=== PATIENT | female | born 1980 | race African-American/Black ===

== ENCOUNTER 2024-08-17 15:30 | Emergency (ER) | payer SELFPAY ==
--- NOTE | 2024-08-17 16:35 | RAD REPORT ---
EXAM: 1St Trimest Single 1St Fetus HISTORY: VAGINAL BLEEDING COMPARISON: None TECHNIQUE: Multiple grayscale and color Doppler images were obtained in a transabdominal pelvic ultra sound. Spectral analysis of the Doppler waveforms of the ovaries were performed. FINDINGS: UTERUS: There is an intrauterine gestational sac. This contains a pole. [place]-rump length: 5.6 cm which estimates gestational age at 12 week 1 day. A heart rate is detected at 177 bpm. No evidence of subchorionic hemorrhage. No free fluid is seen in the pelvis. RIGHT OVARY: Nonvisualized LEFT OVARY: Nonvisualized IMPRESSION: Single live intrauterine with estimated age of 12 weeks 1 day.
[2024-08-17 19:50] LABS: Absolute Eosinophils 0.1 K/uL (0-0.5); Absolute Monocytes 0.2 K/uL (0.1-1.3); Absolute Neutrophil 3.2 K/uL (1.8-8.0); Basophils % 0.6 % (0-1.3); Eosinophils % 2.5 % (0-4.4); Hematocrit 38.3 % (36.0-45.0); Hemoglobin 13.2 g/dL (12.0-15.0); Lymphocytes % 22.6 % (15.3-44.8); MCH 31.1 pg (27.0-35.0); MCHC 34.6 g/dL (32.0-36.0); MPV 6.8 fL (7.6-11.3); Monocytes % 4.7 % (3.3-12.3); Neutrophils % 69.6 % (41.7-73.7); Nucleated Red Blood Cells % 0.1 % (0-0); Platelets 282 thou/uL (152-406); RBC Red Blood Cell Count 4.25 M/uL (3.86-4.86); Red Cell Distribution Width 14.6 % (12.1-15.2)
[2024-08-17 19:51] LABS: Specific Gravity 1.016 (1.005-1.030); Sqamous Epithelial <5 /HPF (None Seen); Urine Bacteria None Seen /HPF (<20); Urine Bilirubin NEGATIVE (Negative); Urine Blood 3+ (OVER) (Negative); Urine Clarity Extremely Turbid (Clear); Urine Color Colorless (Yellow); Urine Crystals Unidentified Few /HPF (None Seen); Urine Culture Reflex Order REFLEXED; Urine Glucose NEGATIVE (Negative); Urine Ketones NEGATIVE (Negative); Urine Microscopic Reflex YN ORDER UMIC; Urine Mucus Slight /HPF (None Seen); Urine Nitrite NEGATIVE (Negative); Urine Protein NEGATIVE (Negative); Urine RBC >50 /HPF (None Seen); Urine Urobilinogen Normal (Normal); Urine WBC 20-50 /HPF (<5); Urine WBC Clump Rare /HPF (None Seen); Urine Yeast (Budding) Trace /HPF (None Seen); Urine pH 5.5 (5.0-7.0)
[2024-08-17 20:11] LABS: Anion Gap 8.6 mEq/L (5.0-15.0); Potassium 3.6 mEq/L (3.5-5.1)
--- NOTE | 2024-08-17 21:10 | ER ---
Nurse's Notes [facility] Name: Sury Gallegos Age: 44 yrs Sex: Female : 1980 Arrival Date: 08/17/2024 Time: 15:30 Bed 11 Private MD: Diagnosis: Threatened Presentation: 08/17 16:33 Chief complaint: Patient states: Vaginal bleeding onset just [employer]. Pt states that cm10 initially the bleeding was bright red now it is dark. Pt approximately 12-13 weeks . . Coronavirus screen: Client denies travel out of the [place] in the last 14 days. Ebola Screen: Patient denies travel to an Ebola-affected area in the 21 days before illness onset. Initial Sepsis Screen: Does the patient meet any 2 criteria? No. Patient's initial sepsis screen is negative. Does the patient have a suspected source of infection? No. Patient's initial sepsis screen is negative. Risk Assessment: Do you want to hurt yourself or someone else? Patient reports no desire to harm self or others. Onset of symptoms was August 17, 2024. 16:33 Method Of Arrival: Ambulatory cm10 16:33 Acuity: DAVIAN 3 cm10 Triage Assessment: 16:35 General: Appears in no apparent distress. uncomfortable, Behavior is calm, cooperative. cm10 Pain: Denies pain. Neuro: No deficits noted. Level of Consciousness is awake, alert, obeys commands, Oriented to person, place, time, situation, Appropriate for age. : Reports vaginal bleeding that is bright red, brown, light flow, spotty. Historical: - Allergies: 16:33 No Known Allergies; cm10 - Home Meds: 16:33 None [Active]; cm10 - PMHx: 16:33 None; cm10 - PSHx: 16:33 None; cm10 - Immunization history:: Adult Immunizations up to date. - Infectious Disease History:: Denies. - Social history:: Smoking status: Patient denies any tobacco usage or history of. Screenin:41 [facility] ED Fall Risk Assessment (Adult) History of falling in the last 3 months, vc1 including since admission No falls in past 3 months (0 pts) Confusion or Disorientation No (0 pts) Intoxicated or Sedated No (0 pts) Impaired Gait No (0 pts) Mobility Assist Device Used No (0 pt) Altered Elimination No (0 pt) Score/Fall Risk Level 0 - 2 = Low Risk Oriented to surroundings, Maintained a safe environment, Educated pt \T\ family on fall prevention, incl call for assistance when getting out of bed. Abuse screen: Denies threats or abuse. Nutritional screening: No deficits noted. Tuberculosis screening: No symptoms or risk factors identified. Assessment: 16:04 General: pt to ultrasound. cm10 Vital Signs: 16:33 BP 133 / 97; Pulse 79; Resp 18; Temp 98.8(O); Pulse Ox 96% on R/A; Weight 97.52 kg; cm10 Height 4 ft. 9 in. ; Pain 0/10; 16:33 Body Mass Index 46.53 (97.52 kg, 144.78 cm) cm10 16:33 Pain Scale: Adult cm10 Vitals: 21:04 Heart Tones 172 BPM. vc1 ED Course: 15:34 Patient arrived in ED. im 15:46 [facility]C [facility] kb 15:46 Misael Edward MD is Attending Physician. kb 16:05 Triage completed. cm10 16:28 1St Trimest Single 1St Fetus In Process Unspecified. EDMS 16:33 Arm band placed on right wrist. Patient placed in waiting room. cm10 19:44 Abo/rh Typing Sent. vk 19:44 Basic Metabolic Panel Sent. vk 19:44 CBC with Diff Sent. vk 19:44 Test, Urine Sent. vk 19:44 Quantitative Hcg Sent. vk 19:44 Urinalysis w/ reflexes Sent. vk 19:44 Initial lab(s) drawn, by tx, sent to lab. Urine collected: clean catch specimen, clear. vk Inserted saline lock: 20 gauge in left antecubital area, using aseptic technique. Blood collected. Flushed with 10 mL NS. 21:40 Britt Gentile, RN is Primary Nurse. vc1 21:41 No provider procedures requiring assistance completed. IV discontinued, intact, vc1 bleeding controlled, No redness/swelling at site. Pressure dressing applied. 21:42 Patient has correct armband on for positive identification. Provided Education on: vc1 pelvic rest and f/u with OB. Administered Medications: No medications were administered Medication: 21:43 VIS not applicable for this client. vc1 Outcome: 21:09 Discharge ordered by MD. kb 21:41 Discharged to home ambulatory, with friend, vc1 21:41 Condition: stable 21:41 Discharge instructions given to patient, Instructed on discharge instructions, follow up and referral plans. Demonstrated understanding of instructions, follow-up care, 21:43 Patient left the ED. vc1 Signatures: Dispatcher [employer] EDMS Natacha Velez, Britt Alcantar RN RN vc1 Darling Browning Clarissa, RN RN cm10 Talisha Anderson Corrections: (The following items were deleted from the chart) 16:06 16:04 Chief complaint: Patient states: left eye pain onset today. tearing and swelling cm10 noted cm10 16:06 16:04 Coronavirus screen: Client denies travel out of the [place] in the last 14 days. [id number] 16: 16:04 Ebola Screen: Patient denies travel to an Ebola-affected area in the 21 days cm10 before illness onset. cm10 16:06 16:04 Initial Sepsis Screen: Does the patient meet any 2 criteria? No. Patient's cm10 initial sepsis screen is negative. Does the patient have a suspected source of infection? No. Patient's initial sepsis screen is negative. cm10 16:06 16:04 Risk Assessment: Do you want to hurt yourself or someone else? Patient reports no cm10 desire to harm self or others. cm10 16:06 16:04 Onset of symptoms was August 17, 2024 cm10 cm10 16:06 16:04 Method Of Arrival: Ambulatory cm10 cm10 16:06 16:04 BP 118 / 91; Pulse 78bpm; Resp 18bpm; Pulse Ox 95% RA; Temp 98.7F; 81.65 kg; cm10 Height 5 ft. 9 in.; BMI: 26.5; Pain 1/10, Adult; cm10 16:06 16:04 Acuity: DAVIAN 4 cm10 cm10 16:06 16:05 Allergies: No Known Allergies; cm10 cm10 16:06 16:05 PMHx: Depressive disorder; cm10 cm10 16:06 16:05 Immunization history: Adult Immunizations unknown, cm10 cm10 16:06 16:05 Infectious Disease History: Denies. cm10 cm10 16:06 16:05 Social history: Smoking status: Reported history of juuling and/or vaping. cm10 cm10
--- NOTE | 2024-08-17 21:10 | EDPHYS ---
Physician Documentation [facility] Name: Sury Gallegos Age: 44 yrs Sex: Female : 1980 Arrival Date: 08/17/2024 Time: 15:30 Bed 11 Private MD: Misael Chery HPI: 08/17 16:30 This 44 yrs old Female presents to ER via Ambulatory with complaints of 12 weeks kb , Vaginal Bleeding. 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 kb States she is 12-13 weeks . Denies abd pain. Reports normal thus far. LMP 05/25/24. A0. Pt has not seen OB for this yet. . Historical: - Allergies: 16:33 No Known Allergies; cm10 - Home Meds: 16:33 None [Active]; cm10 - PMHx: 16:33 None; cm10 - PSHx: 16:33 None; cm10 - Immunization history:: Adult Immunizations up to date. - Infectious Disease History:: Denies. - Social history:: Smoking status: Patient denies any tobacco usage or history of. ROS: 16:31 Constitutional: As per HPI kb Exam: 16:31 Constitutional: This is a well developed, well nourished patient who is awake, alert, kb and in no acute distress. Head/Face: Normocephalic, atraumatic. ENT: Moist Mucous membranes Cardiovascular: Regular rate Respiratory: Respirations even and unlabored. No increased work of breathing. Talking in full sentences Abdomen/GI: Soft, non-tender. No distention Skin: Warm, dry with normal turgor. Normal color. MS/ Extremity: Pulses equal, no cyanosis. Neurovascular intact. Full, normal range of motion. Neuro: Awake and alert, GCS 15, oriented to person, place, time, and situation. Vital Signs: 16:33 BP 133 / 97; Pulse 79; Resp 18; Temp 98.8(O); Pulse Ox 96% on R/A; Weight 97.52 kg; cm10 Height 4 ft. 9 in. ; Pain 0/10; 16:33 Body Mass Index 46.53 (97.52 kg, 144.78 cm) cm10 16:33 Pain Scale: Adult cm10 MDM: 15:46 Medical Screening Exam initiated kb 16:32 Data reviewed: vital signs, nurses notes. kb 20:46 Differential diagnosis:. kb 20:46 Differential diagnosis: threatened Ab, ectopic . Counseling: I had a detailed kb discussion with the patient and/or guardian regarding the historical points, exam findings, and any diagnostic results supporting the discharge/admit diagnosis, lab results, radiology results, the need for outpatient follow up, an OB/Gyne specialist, to return to the emergency department if symptoms worsen or persist or if there are any questions or concerns that arise at home. 08/17 15:46 Order name: Abo/rh Typing; Complete Time: 20:12 kb 08/17 15:46 Order name: Basic Metabolic Panel; Complete Time: 20:22 kb 08/17 15:46 Order name: CBC with Diff; Complete Time: 19:59 kb 08/17 15:46 Order name: Test, Urine; Complete Time: 19:59 kb 08/17 15:46 Order name: Quantitative Hcg; Complete Time: 20:22 kb 08/17 15:46 Order name: Urinalysis w/ reflexes; Complete Time: 19:59 kb 08/17 19:55 Order name: Urine Culture EDMS 08/17 16:24 Order name: 1St Trimest Single 1St Fetus; Complete Time: 16:59 EDMS 08/17 15:46 Order name: IV Saline Lock; Complete Time: 19:44 kb 08/17 15:46 Order name: Labs collected and sent; Complete Time: 19:44 kb 08/17 15:46 Order name: NPO; Complete Time: 19:48 kb Administered Medications: No medications were administered Disposition Summary: 08/17/24 21:09 Discharge Ordered Notes: Location: Home kb Condition: Stable kb Diagnosis - Threatened kb Followup: kb - With: Emergency Department - When: As needed - Reason: Worsening of condition Followup: kb - With: Private Physician - When: 2 - 3 days - Reason: Recheck today's complaints, Continuance of care, Re-evaluation by your physician Discharge Instructions: - Discharge Summary Sheet kb - Threatened Miscarriage, [id number] kb - Vaginal Bleeding During , First Trimester, [id number] kb Forms: - Medication Reconciliation Form kb - Antibiotic Education kb - Prescription Opioid Use kb - Patient Portal Instructions kb - Leadership Thank You Letter kb - Work release form vc1 Signatures: Dispatcher [employer] EDMS Natacha Velez, PRENATAL NURSE-C PRENATAL NURSE-Laney Orta RN RN cm10 Corrections: (The following items were deleted from the chart) 15:47 15:47 ABO/RH TYPING+BB.LAB.BRZ ordered. EDMS EDMS 15:47 15:47 BASIC METABOLIC PANEL+C.LAB.BRZ ordered. EDMS EDMS 15:47 15:47 CBC+H.LAB.BRZ ordered. EDMS EDMS 15:47 15:47 Test, Urine+UC.LAB.BRZ ordered. EDMS EDMS 15:47 15:47 QUANTITATIVE HCG+C.LAB.BRZ ordered. EDMS EDMS 15:47 15:47 Urinalysis+U.LAB.BRZ ordered. EDMS EDMS 16:06 16:05 Allergies: No Known Allergies; cm10 cm10 16:06 16:05 PMHx: Depressive disorder; cm10 cm10 16:06 16:05 Immunization history: Adult Immunizations unknown, cm10 cm10 16:06 16:05 Infectious Disease History: Denies. cm10 cm10 16:06 16:05 Social history: Smoking status: Reported history of juuling and/or vaping. cm10 cm10 16:24 15:47 Transvaginal Ob+US.RAD.BRZ ordered. EDMS EDMS 19:48 19:44 FHT's ordered. kb vc1
[2024-08-17 22:08] VITALS: BP 133/97; TEMP 98.8; O2SAT 96
== END 2024-08-17 21:43 | disposition home or self-care (01) ==
LOC: ER 15:30
DX: O20.0 Threatened abortion (principal); Z3A.12 12 weeks gestation of pregnancy
CPT/HCPCS: 36415; 76801; 80048; 81001; 81025; 84702; 85025; 86900; 86901; 87086; 87088; 99284